=== PATIENT | female | born 1935 | race Caucasian/White ===

== ENCOUNTER 2016-12-24 17:13 | Emergency (ER) | payer OTHER, BC ==
[2016-12-24 17:50] VITALS: BP 128/75; PULSE 61; RESP 16; TEMP 97.3; O2SAT 94
[2016-12-24] MEDS ORDERED: LET GEL TOPICAL 1 EA SYR TP ONE (17:50)
--- NOTE | 2016-12-24 18:10 | EDPHY ---
H & P Time Seen by Provider: 12/24/16 17:27 HPI/ROS: CHIEF COMPLAINT: Leg injury History by patient HISTORY OF PRESENT ILLNESS: 81-year-old woman on Coumadin presents complaining of skin tear to her left charles after she tripped and hit a curb. She is able to ambulate. BP initially wound at home but were concerned about the bleeding and so came in to get checked out. She denies any other pain or injury. REVIEW OF SYSTEMS: As in HPI, and all other systems reviewed and are negative Physical Exam: General Appearance: Alert and no distress. Younger appearing than stated age Eyes: Pupils equal and round no injection. Musculoskeletal: Neck is supple and nontender. Extremities: Left charles 5 x 5 cm skin tear on anterior charles with bleeding controlled. DP pulse 2 + equal bilaterally, distal sensation intact. Skin: No rashes or lesions except as described above. Constitutional: Initial Vital Signs Temperature (C) 36.3 C 12/24/16 17:33 Heart Rate 61 12/24/16 17:33 Respiratory Rate 16 12/24/16 17:33 Blood Pressure 128/75 H 12/24/16 17:33 O2 Sat (%) 94 12/24/16 17:33 O2 Delivery Mode Room Air Allergies/Adverse Reactions: No Known Allergies Allergy (Verified 12/24/16 17:28) Home Medications: Medication Instructions Recorded Celexa 12/24/16 Coumadin 12/24/16 Coumadin 2.5MG (*) 2.5 12/24/16 Lyrica 12/24/16 Synthroid 12/24/16 Toprol Xl 25 mg (*) 12/24/16 MDM/Departure - MDM Medications Given: Discontinued Medications Tetracaine/Epinephrine/Lidocaine (Let Gel Topical) 1 ea TP EDNOW ONE Stop: 12/24/16 17:51 Last Admin: 12/24/16 17:55 Dose: 1 ea ED Course/Re-evaluation: 81-year-old woman presents with skin tear to left anterior tibia. Tetanus status is up-to-date. Wound was cleaned and dressed and Mepilex dressing placed. We discussed return precautions and signs and symptoms of infection. Patient was discharged home in stable condition. - Depart Disposition: Home, Routine, Self-Care Clinical Impression: Skin tear of left lower leg without complication Qualifiers: Encounter type: initial encounter Qualified Code(s): R63.898Z - Laceration without foreign body, left lower leg, initial encounter Condition: Good Instructions: Skin Tear (ED) Additional Instructions: You were seen by Dr. Mini Araujo today. You may change the Mepilex dressing in 2-3 days or if the border gets soaked. Wash the wound gently with soap and water. Watch for signs and symptoms of infection including but not limited to pus draining from the wound, fever, increased pain or redness Return for any worsening or new concerns. Referrals: CECELIA MEJIA [Primary Care Provider] - As per Instructions
== END 2016-12-24 18:33 | disposition home or self-care (01) ==
LOC: CED 17:13
DX: S81.812A Laceration without foreign body, left lower leg, initial encounter (principal); Z79.01 Long term (current) use of anticoagulants; W01.198A Fall on same level from slipping, tripping and stumbling with subsequent striking against other object, initial encounter